=== PATIENT | female | born 1995 | race Caucasian/White ===

== ENCOUNTER 2018-10-07 18:17 | Observation (INO) ==
[2018-10-07] MEDS ORDERED: KETOROLAC 30 MG/ML VIAL IV STA (18:38)
[2018-10-07] MEDS ORDERED: ONDANSETRON INJ 2 MG/ML 2 ML VIAL IV STA (18:38)
[2018-10-07] MEDS ORDERED: SODIUM CHLORIDE 0.9% 1000ML 1,000 ML IV SCH (18:45)
[2018-10-07 19:01] LABS: Basophils # (auto) 0.02 K/uL (0-0.2); Basophils % (auto) 0.1 %; Hematocrit (blood only) 41.7 % (37-47); Hemoglobin 14.8 g/dL (12.0-16.0); Immature Granulocytes # (auto) 0.04 K/uL (0.00-0.02); Immature Granulocytes % (auto) 0.2 %; Lymphocytes # (auto) 0.81 K/uL (1.2-3.4); Lymphocytes % (auto) 4.1 %; Mean Corpuscular Hgb Conc 35.5 g/dL (32-36); Mean Platelet Volume 9.3 fL (7.4-10.4); Monocytes # (auto) 0.93 K/uL (0.11-0.59); Monocytes % (auto) 4.7 %; Neutrophils # (auto) 18.19 K/uL (1.4-6.5); Neutrophils % (auto) 90.9 %; Platelet Count 315 K/uL (130-400); RDW Coefficient of Variation 12.3 % (11.5-14.5); RDW Standard Deviation 40.3 fL (36.4-46.3); Red Blood Count 4.58 M/uL (4.2-5.4); White Blood Count 19.99 K/uL (4.8-10.8)
[2018-10-07 19:20] LABS: Albumin Level 4.2 gm/dl (3.4-5.0); BUN Creatinine Ratio 8.5 (10-20); Calcium 9.5 mg/dl (8.5-10.1); Est GFR (African American) 129.3; Est GFR (Non-African American) 111.6; Potassium 3.3 mmol/L (3.5-5.1)
[2018-10-07 19:22] LABS: Appearance Urine Turbid (Clear); Bacteria Urine Automated Negative (Negative); Bilirubin Urine Negative (Negative); Color Urine Yellow; Glucose Urine UA Negative (Negative); Leukocyte Esterase Urine Negative (Negative); Nitrite Urine Negative (Negative); Protein Urine Negative (Negative); Specific Gravity Urine 1.022 (1.000-1.030); Urobilinogen Urine Negative (Negative); pH Urine 7.5 (4.5-7.5)
[2018-10-07 19:23] LABS: Albumin Globulin Ratio 1.1 (0.9-2); Bilirubin,Total 0.7 mg/dl (0.2-1); Globulin 3.9 gm/dl (2.5-4.0); Total Protein 8.1 gm/dl (6.4-8.2)
[2018-10-07 19:28] LABS: Ketones Urine 3+ (Negative)
[2018-10-07] MEDS ORDERED: SODIUM CHLORIDE 0.9% 1000ML 1,000 ML IV ONE (19:30)
[2018-10-07 19:31] LABS: iSTAT Hemoglobin 13.6 g/dl (12.0-16.0); iSTAT Ionized Calcium 1.12 mmol/l (1.12-1.32)
[2018-10-07] MEDS ORDERED: IOVERSOL 100ml IV PRN (19:41)
[2018-10-07] MEDS ORDERED: MOXIFLOXACIN / 0.8% SALINE 400 MG/250 ML BAG IV STA (19:49)
--- NOTE | 2018-10-07 19:54 | CT Scan Report ---
CT OF THE ABDOMEN AND PELVIS WITH CONTRAST CLINICAL HISTORY: Right lower quadrant abdominal pain. COMPARISON STUDY: None. TECHNIQUE: Following IV administration of 93 mL of Optiray-320, axial images of the abdomen and pelvi s were obtained from the lung bases to the proximal femurs. Images were reviewed in the axial, sagitt al, and coronal planes. IV contrast was administered without complication. Automated exposure contro l was utilized for the study. A dose lowering technique was utilized adhering to the principles of A MARK. CT DOSE: 263.25 mGy.cm FINDINGS: Lung bases are clear. The liver, spleen, adrenal glands, kidneys and pancreas are normal. T here is no biliary or pancreatic ductal dilatation. There is no hydronephrosis. There is no evidence for a bowel obstruction. A small appendicolith is noted within the base of the appendix. The appendix is fluid-filled and mildly dilated, measuring 8 mm in caliber. There is no significant periappendice al infiltration. There is no free air or abscess. The appendix extends posteriorly along the medial a spect of the right iliac vessels. The ovaries are not enlarged. No suspicious skeletal lesion is note d. IMPRESSION: Acute appendicitis. No free air or abscess. Mildly dilated, fluid-filled appendix which contains an appendicolith. No significant periappendiceal infiltration. Findings discussed with Dr. Karen glass at time of dictation. Electronically signed by: Jamar Smith M.D. 10/07/2018 7:52 PM
[2018-10-07] MEDS ORDERED: CIPROFLOXACIN 400 MG/200 ML BAG IV STA (20:22)
[2018-10-07] MEDS ORDERED: metroNIDAZOLE 500 MG/100 ML BAG IV STA (20:22)
--- NOTE | 2018-10-07 20:33 | History & Physical Report ---
Date of Service October 07, 2018 Assessment & Plan (1) Appendicitis: This patient's history, physical findings, laboratories and CT findings are consistent with appendicitis. I have recommended a laparoscopic appendectomy. I explained the possible need to convert to an open procedure. I explained the possible complications associated with those procedures. The patient wishes to go ahead with surgery and has signed a consent form. Present on Admission?: Yes History of Present Illness Chief Complaint: Abdominal pain Primary Care Provider: Oliva Coronado This is a 23-year-old female who developed pain in the periumbilical area then radiating towards the left and the right side with no side predominating. It began at 11 PM last night. The pain was initially dull but then when she woke up this morning it became much more sharp. She has nausea and had a few episodes of vomiting 1 of which was self-induced hoping that it would make her feel better but it did not. She has not had fever or chills. She has never had pain like this before. The pain is exacerbated by motion. She has no change in her bowel habits. There is no melena or hematochezia. She has no dysuria or hematuria. Her menstrual cycles have been normal. Allergies Allergy/AdvReac Type Severity Reaction Status Date / Time No Known Allergies Allergy Unverified 10/07/18 18:41 Home Medications Home Medications Medication Instructions Recorded Confirmed Type Control 1 tab PO DAILY 10/07/18 10/07/18 History Past Med/Surg History Medical History No pertinent past medical history Family History Other No pertinent family history in first degree relatives Social History Feels Safe at Home: Yes Smoking Status: Never smoker Hx Alcohol Use: Yes (Occasional) Review of Systems All systems reviewed & are unremarkable except as noted in HPI & below Physical Exam 2 Vital Signs (Past 24 Hours): Last Vital Signs Temp 37.1 C 10/07/18 18:21 Pulse 105 H 10/07/18 19:57 Resp 18 10/07/18 19:57 BP 150/91 H 10/07/18 19:57 Pulse Ox 100 10/07/18 19:57 Constitutional: well developed and well nourished; no acute distress Neck: trachea midline, no thyromegaly Respiratory: normal respiratory effort, lungs clear to auscultation Cardiovascular: Rate/Rhythm: regular rate and regular rhythm Gastrointestinal (Abdomen): Inspection/Auscultation: normal bowel sounds; abdomen not distended Percussion/Palpation: + abdomen tender and abdomen soft Lymphatic: no cervical lymphadenopathy Results & Data Laboratory Results 10/07/18 10/07/18 10/07/18 Range/Units 19:17 18:50 18:50 WBC 19.99 H (4.8-10.8) K/uL RBC 4.58 (4.2-5.4) M/uL Hgb 14.8 (12.0-16.0) g/dL POC Hgb 13.6 (12.0-16.0) g/dl Hct 41.7 (37-47) % POC Hct 40 (37-47) % MCV 91.0 (80-100) fL MCH 32.3 (25-34) pg MCHC 35.5 (32-36) g/dL RDW Std Deviation 40.3 (36.4-46.3) fL RDW Coeff of Jonathan 12.3 (11.5-14.5) % Plt Count 315 (130-400) K/uL MPV 9.3 (7.4-10.4) fL Immature Gran % (Auto) 0.2 % Neut % (Auto) 90.9 % Lymph % (Auto) 4.1 % Cocke % (Auto) 4.7 % Eos % (Auto) 0.0 % Baso % (Auto) 0.1 % Immature Gran # (Auto) 0.04 H (0.00-0.02) K/uL Neut # (Auto) 18.19 H (1.4-6.5) K/uL Lymph # (Auto) 0.81 L (1.2-3.4) K/uL Cocke # (Auto) 0.93 H (0.11-0.59) K/uL Eos # (Auto) 0.00 (0-0.5) K/uL Baso # (Auto) 0.02 (0-0.2) K/uL POC Sodium 138 (135-144) mEq/L Sodium 138 (136-145) mmol/L POC Potassium 4.4 (3.3-5.0) mEq/L Potassium 3.3 L (3.5-5.1) mmol/L POC Chloride 102 (101-112) mEq/L Chloride 105 (98-107) mmol/L Carbon Dioxide 24 (21-32) mmol/L POC Total CO2 28 (24-31) mEq/l Anion Gap 9.0 (3-11) POC Anion Gap 14.0 L (16-25) mmol/L POC BUN 5 L (7-18) mg/dl BUN 6 L (7-18) mg/dl Creatinine 0.75 (0.6-1.2) mg/dl POC Creatinine 0.6 (0.6-1.3) mg/dl Est Cr Clr Drug Dosing 102.0 ml/min Est GFR ( Amer) 129.3 Est GFR (Non-Af Amer) 111.6 BUN/Creatinine Ratio 8.5 L (10-20) Glucose 118 H (70-99) mg/dl POC Glucose (other) 119 H (70-99) mg/dl Calcium 9.5 (8.5-10.1) mg/dl POC Ioniz Calcium Janny 1.12 (1.12-1.32) mmol/l Total Bilirubin 0.7 (0.2-1) mg/dl AST 11 L (15-37) U/L ALT 15 (12-78) U/L Alkaline Phosphatase 48 (45-117) U/L Total Protein 8.1 (6.4-8.2) gm/dl Albumin 4.2 (3.4-5.0) gm/dl Globulin 3.9 (2.5-4.0) gm/dl Albumin/Globulin Ratio 1.1 (0.9-2) Lipase 60 L (73-393) U/L Urine Color Urine Appearance (Clear) Urine pH (4.5-7.5) Ur Specific Anthony (1.000-1.030) Urine Protein (Negative) Urine Glucose (UA) (Negative) Urine Ketones (Negative) Urine Blood (Negative) Urine Nitrite (Negative) Urine Bilirubin (Negative) Urine Urobilinogen (Negative) Ur Leukocyte Esterase (Negative) Urine WBC (Auto) (0-5) /hpf Urine RBC (Auto) (0-4) /hpf U Hyaline Cast (Auto) (0-5) /lpf U Epithel Cells (Auto) (0-5) /lpf Urine Bacteria (Auto) (Negative) POC Ur Test (NEG) 10/07/18 10/07/18 Range/Units 18:30 18:30 WBC (4.8-10.8) K/uL RBC (4.2-5.4) M/uL Hgb (12.0-16.0) g/dL POC Hgb (12.0-16.0) g/dl Hct (37-47) % POC Hct (37-47) % MCV (80-100) fL MCH (25-34) pg MCHC (32-36) g/dL RDW Std Deviation (36.4-46.3) fL RDW Coeff of Jonathan (11.5-14.5) % Plt Count (130-400) K/uL MPV (7.4-10.4) fL Immature Gran % (Auto) % Neut % (Auto) % Lymph % (Auto) % Cocke % (Auto) % Eos % (Auto) % Baso % (Auto) % Immature Gran # (Auto) (0.00-0.02) K/uL Neut # (Auto) (1.4-6.5) K/uL Lymph # (Auto) (1.2-3.4) K/uL Cocke # (Auto) (0.11-0.59) K/uL Eos # (Auto) (0-0.5) K/uL Baso # (Auto) (0-0.2) K/uL POC Sodium (135-144) mEq/L Sodium (136-145) mmol/L POC Potassium (3.3-5.0) mEq/L Potassium (3.5-5.1) mmol/L POC Chloride (101-112) mEq/L Chloride (98-107) mmol/L Carbon Dioxide (21-32) mmol/L POC Total CO2 (24-31) mEq/l Anion Gap (3-11) POC Anion Gap (16-25) mmol/L POC BUN (7-18) mg/dl BUN (7-18) mg/dl Creatinine (0.6-1.2) mg/dl POC Creatinine (0.6-1.3) mg/dl Est Cr Clr Drug Dosing ml/min Est GFR ( Amer) Est GFR (Non-Af Amer) BUN/Creatinine Ratio (10-20) Glucose (70-99) mg/dl POC Glucose (other) (70-99) mg/dl Calcium (8.5-10.1) mg/dl POC Ioniz Calcium Janny (1.12-1.32) mmol/l Total Bilirubin (0.2-1) mg/dl AST (15-37) U/L ALT (12-78) U/L Alkaline Phosphatase (45-117) U/L Total Protein (6.4-8.2) gm/dl Albumin (3.4-5.0) gm/dl Globulin (2.5-4.0) gm/dl Albumin/Globulin Ratio (0.9-2) Lipase (73-393) U/L Urine Color Yellow Urine Appearance Turbid H (Clear) Urine pH 7.5 (4.5-7.5) Ur Specific Anthony 1.022 (1.000-1.030) Urine Protein Negative (Negative) Urine Glucose (UA) Negative (Negative) Urine Ketones 3+ H (Negative) Urine Blood Negative (Negative) Urine Nitrite Negative (Negative) Urine Bilirubin Negative (Negative) Urine Urobilinogen Negative (Negative) Ur Leukocyte Esterase Negative (Negative) Urine WBC (Auto) 1-5 (0-5) /hpf Urine RBC (Auto) 0-4 (0-4) /hpf U Hyaline Cast (Auto) 1-5 (0-5) /lpf U Epithel Cells (Auto) 10-20 H (0-5) /lpf Urine Bacteria (Auto) Negative (Negative) POC Ur Test NEG (NEG) Diagnostic Findings CT OF THE ABDOMEN AND PELVIS WITH CONTRAST CLINICAL HISTORY: Right lower quadrant abdominal pain. COMPARISON STUDY: None. TECHNIQUE: Following IV administration of 93 mL of Optiray-320, axial images of the abdomen and pelvis were obtained from the lung bases to the proximal femurs. Images were reviewed in the axial, sagittal, and coronal planes. IV contrast was administered without complication. Automated exposure control was utilized for the study. A dose lowering technique was utilized adhering to the principles of ALARA. CT DOSE: 263.25 mGy.cm FINDINGS: Lung bases are clear. The liver, spleen, adrenal glands, kidneys and pancreas are normal. There is no biliary or pancreatic ductal dilatation. There is no hydronephrosis. There is no evidence for a bowel obstruction. A small appendicolith is noted within the base of the appendix. The appendix is fluid- filled and mildly dilated, measuring 8 mm in caliber. There is no significant periappendiceal infiltration. There is no free air or abscess. The appendix extends posteriorly along the medial aspect of the right iliac vessels. The ovaries are not enlarged. No suspicious skeletal lesion is noted. IMPRESSION: Acute appendicitis. No free air or abscess. Mildly dilated, fluid- filled appendix which contains an appendicolith. No significant periappendiceal infiltration. Findings discussed with Dr. Agosto at time of dictation.
[2018-10-07] MEDS ORDERED: HEPARIN (PORCINE) 1000 UNIT/ML 10 ML (CATH LAB USE ONLY) ONE (20:39)
[2018-10-07] MEDS ORDERED: CEFAZOLIN 250 MG/ML 1 GM VIAL ONE (20:39)
[2018-10-07] MEDS ORDERED: BUPIVACAINE 0.5 % 5 MG/1 ML MPF 30ML VIAL ONE (20:40)
--- NOTE | 2018-10-07 20:59 | Anesthesiology Consultation ---
Date of Service October 07, 2018 Assessment & Plan (1) Encounter for pre-operative examination: Chart Review Chart Review: Acceptable Risk for Surgery and Patient NOT seen in Pre Admission Testing Consults Requested none ASA [id number] Proposed Anesthesia Anesthesia Type: General Risk / Benefits Reviewed With: PT / POA / Parent / Guardian, Accepts Plan and Informed Consent Obtained NPO Date Last Intake of Fluids: 10/07/18 Time Last Intake of Fluids: 17:30 Last Intake of Fluids Comment: per patient few sips of water at urgent care Date Last Intake of Solids: 10/07/18 Time Last Intake of Solids: 12:00 Last Intake of Solids Comment: per patient History Surgery Operation Date: 10/07/18 20:35 Proposed Procedures p Laparoscopic Appendectomy - Mani Díaz MD Height/Weight Height: 5 ft 4.5 in Weight: 62.6 kg Allergies Allergy/AdvReac Type Severity Reaction Status Date / Time No Known Allergies Allergy Unverified 10/07/18 18:41 Medications Home Medications Medication Instructions Recorded Confirmed Last Taken Control 1 tab PO DAILY 10/07/18 10/07/18 Unknown Active Medications Generic Name Dose Route Start Last Admin Trade Name Freq PRN Reason Stop Dose Admin Ioversol 93 ml 10/07/18 19:41 10/07/18 19:42 Optiray 320 100ml IV 10/11/18 19:40 93 ml ONCE PRN Administration Interaction Checking Past Medical History Medical History No pertinent past medical history Past Family History Family History Other No pertinent family history in first degree relatives Past Anesthesia History No Family Hx of Anesthesia Complications no prior personal history of anesthesia Motion Sickness Screening History of Motion Sickness: No Social History Smoking Status: Never smoker Do You Dip or Chew Tobacco: No Hx Alcohol Use: Yes (Occasional) Hx Substance Use: No Exercise / Class Metabolic Activity II 4-5 Yardwork/Stairs/Walk up hill Negative for chest pain or shortness of breath. Physical Exam Vital Signs Last Vital Signs Temp 37.1 C 10/07/18 18:21 Pulse 105 H 10/07/18 19:57 Resp 18 10/07/18 19:57 BP 150/91 H 10/07/18 19:57 Pulse Ox 100 10/07/18 19:57 Constitutional not obese ENMT Mouth: no TMJ abnormality and oral opening not small Thyromental Distance: < 3.5 Finger Breadths Mallampati Class: III Neck normal visual inspection; neck extension not limited Respiratory normal respiratory effort Auscultation: lungs clear to auscultation bilaterally Cardiovascular Rate/Rhythm: regular rate and regular rhythm Heart Sounds: no murmur Psychiatric A+Ox3, euthymic affect Orientation: alert and oriented x 3 Testing Laboratory Results 10/07/18 18:50 10/07/18 18:50 Urine Color Yellow 10/07/18 18:30 Urine Appearance Turbid (Clear) H 10/07/18 18:30 Urine pH 7.5 (4.5-7.5) 10/07/18 18:30 Ur Specific [place] 1.022 (1.000-1.030) 10/07/18 18:30 Urine Protein Negative (Negative) 10/07/18 18:30 Urine Glucose (UA) Negative (Negative) 10/07/18 18:30 Urine Ketones 3+ (Negative) H 10/07/18 18:30 Urine Nitrite Negative (Negative) 10/07/18 18:30 Ur Leukocyte Esterase Negative (Negative) 10/07/18 18:30 Urine WBC (Auto) 1-5 /hpf (0-5) 10/07/18 18:30 Urine RBC (Auto) 0-4 /hpf (0-4) 10/07/18 18:30 U Hyaline Cast (Auto) 1-5 /lpf (0-5) 10/07/18 18:30 U Epithel Cells (Auto) 10-20 /lpf (0-5) H 10/07/18 18:30 Urine Bacteria (Auto) Negative (Negative) 10/07/18 18:30 10/07/18 19:17 POC Glucose (other) 119 H 10/07/18 18:30 POC Ur Test NEG
[2018-10-07] MEDS ORDERED: SUCCINYLCHOLINE CHLORIDE 20 MG/ML 10 ML VIAL ONE (21:11)
[2018-10-07] MEDS ORDERED: DEXAMETHASONE SOD INJ 4 MG/ML VIAL ONE (21:11)
[2018-10-07] MEDS ORDERED: LIDOCAINE HCL 2% 2 ML VIAL/AMP(20MG/ML) INFIL ONE (21:11)
[2018-10-07] MEDS ORDERED: MIDAZOLAM HCL 1 MG/ML 2ML VIAL ONE (21:12)
[2018-10-07] MEDS ORDERED: ONDANSETRON INJ 2 MG/ML 2 ML VIAL ONE (21:12)
[2018-10-07] MEDS ORDERED: fentaNYL citrate 100 MCG/2 ML VIAL ONE ×2 (21:12→22:09)
[2018-10-07] MEDS ORDERED: ROCURONIUM BROMIDE 10 MG/ML 5 ML VIAL ONE (21:12)
[2018-10-07] MEDS ORDERED: PROPOFOL IV EMULSION 10 MG/ML 20 ML VIAL IV ONE ×2 (21:12→22:23)
[2018-10-07] MEDS ORDERED: ATROPINE SULFATE 0.1 MG/ML 10ML SYR IV PRN (22:19)
[2018-10-07] MEDS ORDERED: fentaNYL citrate 100 MCG/2 ML VIAL IV PRN (22:19)
[2018-10-07] MEDS ORDERED: ePHEDrine sulfate 50 MG/ML AMP IV PRN (22:19)
[2018-10-07] MEDS ORDERED: HYDROmorphone INJ 1 MG/ML SYRINGE IV PRN (22:19)
[2018-10-07] MEDS ORDERED: ONDANSETRON INJ 2 MG/ML 2 ML VIAL IV PRN ×2 (22:19→23:55)
[2018-10-07] MEDS ORDERED: DiphenhydrAMINE HCL 50 MG/ML VIAL ONE (22:23)
--- NOTE | 2018-10-07 22:28 | Emergency Department Note ---
Entered by Luis Garg acting as a scribe for Sravan Agosto MD History of Present Illness General Chief complaint: Abdominal Pain Stated complaint: CONSTANT PAIN IN AREA AROUND BELLY BUTTON,TENDER Time Seen by Provider: 10/07/18 18:25 Source: patient History of Present Illness Provider complaint: Abdominal pain Onset (ago): day(s) 1 Location: abdomen Radiation: non-radiation Pain Consistency: + constant Maximum Pain Intensity: 5 Relieved By: + other (Bending over) Exacerbated By: + none Associated symptoms: + nausea/vomiting and + other (No urinary symptoms, less frequent bowel movements) The patient is a 23 year old female w/ no PMHx who presents to the ED w/ CC of constant RLQ abdominal pain beginning last night around 2300. She was referred to the ED today by urgent care for further evaluation. She states she has one episode of vomiting, but believes it was induced by the Pepto-Bismol that she took. She originally took this medication thinking that her pain was gas related. She does note that bending over makes the pain better and nothing seems to make it worse. She does not have any urinary symptoms but has been moving her bowels less frequently. She denies any recent trauma or surgeries and is only on control daily. She admits to occasionally using alcohol but no tobacco or drugs. Her LNMP was 2 weeks ago. Home Medications Home Medications Medication Instructions Recorded Confirmed Type Control 1 tab PO DAILY 10/07/18 10/07/18 History Allergies Allergy/AdvReac Type Severity Reaction Status Date / Time No Known Allergies Allergy Unverified 10/07/18 18:41 Past Med/Surg History Medical History No pertinent past medical history Family History Other No pertinent family history in first degree relatives Social History Feels Safe at Home: Yes Smoking Status: Never smoker Do You Dip or Chew Tobacco: No Hx Alcohol Use: Yes (Occasional) Hx Substance Use: No Review of Systems See HPI for pertinent positives & negatives. and A total of 10 systems reviewed and were otherwise negative Physical Exam Vital Signs Vital Signs - 24 hr 10/07/18 18:21 10/07/18 18:27 10/07/18 19:00 Temperature 37.1 C Temperature Source Oral Sepsis Recent Fever Within 48 Hours No Sepsis Action Taken by Nursing No Action Required Pulse Rate 99 H Pulse Rate [Finger] Respiratory Rate 18 16 Respiratory Effort / Characteristics Non-Labored Respiratory Depth Normal Blood Pressure 140/94 Blood Pressure [Left Arm] Blood Pressure Mean 109 Blood Pressure Mean [Left Arm] Blood Pressure Position Sitting Pulse Oximetry 98 98 98 Oxygen Delivery Method Room Air Room Air Room Air 10/07/18 19:57 10/07/18 21:01 Temperature Temperature Source Sepsis Recent Fever Within 48 Hours Sepsis Action Taken by Nursing Pulse Rate 122 H Pulse Rate [Finger] 105 H Respiratory Rate 18 18 Respiratory Effort / Characteristics Respiratory Depth Blood Pressure 119/84 Blood Pressure [Left Arm] 150/91 H Blood Pressure Mean Blood Pressure Mean [Left Arm] 110 Blood Pressure Position Pulse Oximetry 100 100 Oxygen Delivery Method Room Air Room Air GENERAL: Well appearing, well nourished, NAD, non-toxic. EYE EXAM: Normal conjunctiva. PERRL, no anisocoria and EOM's grossly intact w/o pains. OROPHARYNX: No exudate, posterior pharynx is clear, no tonsillar/uvular deviation or swelling. NECK: Supple, no nuchal rigidity, no adenopathy, non-tender. No signs of meningismus. LUNGS: Clear to auscultation bilaterally. Normal chest wall mechanics. HEART: Tachycardic and regular, no MRG. ABDOMEN: Abdomen soft, RLQ suprapubic pain, normo-active bowel sounds, no masses , no rebound or guarding. Negative obturator and psoas BACK: No CVA TTP. SKIN: No rashes and no bruising. UPPER EXTREMITIES: Upper extremities are grossly normal. LOWER EXTREMITIES: No pitting edema. No calf pain. NEURO EXAM: Cranial nerves II-XII grossly intact, normal speech, 5/5 strength in bilateral upper and lower extremities, no sensory deficits, moves all 4 extremities on command w/o issue. Course 1829: Past medical records reviewed. The patient was evaluated in room C09, and a complete history and physical examination were performed. 1950: I reevaluated the patient and updated her on results. She understand the situation and agrees with the plan. 1954: I spoke to Dr. Díaz - General Surgery and he is going to come evaluate the patient and accept her for further treatment. Consultations Consultation #1: I spoke to Dr. Díaz - General Surgery and he is going to come evaluate the patient and accept her for further treatment. Time: 19:55 Administered Medications Ioversol (Optiray 320 100ml) 93 ml IV ONCE PRN PRN Reason: Interaction Checking Stop: 10/11/18 19:40 Last Admin: 10/07/18 19:42 Dose: 93 ml Discontinued Medications Sodium Chloride (Nss 1000ml) 1,000 mls @ 999 mls/hr IV .Q1H1M ANCA Stop: 10/07/18 19:45 Last Infusion: 10/07/18 20:12 Dose: 0 mls/hr Admin: 10/07/18 19:10 Dose: 999 mls/hr Sodium Chloride (Nss 1000ml) 1,000 mls @ 999 mls/hr IV .Q1H1M ONE Stop: 10/07/18 20:30 Last Admin: 10/07/18 19:54 Dose: 999 mls/hr Ciprofloxacin (Cipro) 400 mg in 200 mls @ 200 mls/hr IV NOW STA Stop: 10/07/18 21:21 Last Admin: 10/07/18 20:37 Dose: 200 mls/hr Metronidazole (Flagyl) 500 mg in 100 mls @ 100 mls/hr IV NOW STA Stop: 10/07/18 21:21 Last Admin: 10/07/18 20:37 Dose: 100 mls/hr Ketorolac Tromethamine (Toradol) 30 mg IV NOW STA Stop: 10/07/18 18:39 Last Admin: 10/07/18 19:10 Dose: 30 mg Ondansetron HCl (Zofran) 4 mg IV NOW STA Stop: 10/07/18 18:39 Last Admin: 10/07/18 19:10 Dose: 4 mg Medical Decision Making Medical Records Attestation: I reviewed the patient's medical records. Home Medications Current Medication List: was personally reviewed by me Laboratory Data Attestation: I reviewed the patient's lab results. Result diagrams: 10/07/18 18:50 10/07/18 18:50 Lab Results 10/07/18 10/07/18 10/07/18 Range/Units 18:30 18:30 18:50 WBC 19.99 H (4.8-10.8) K/uL RBC 4.58 (4.2-5.4) M/uL Hgb 14.8 (12.0-16.0) g/dL POC Hgb (12.0-16.0) g/dl Hct 41.7 (37-47) % POC Hct (37-47) % MCV 91.0 (80-100) fL MCH 32.3 (25-34) pg MCHC 35.5 (32-36) g/dL RDW Std Deviation 40.3 (36.4-46.3) fL RDW Coeff of Jonathan 12.3 (11.5-14.5) % Plt Count 315 (130-400) K/uL MPV 9.3 (7.4-10.4) fL Immature Gran % (Auto) 0.2 % Neut % (Auto) 90.9 % Lymph % (Auto) 4.1 % [place] % (Auto) 4.7 % Eos % (Auto) 0.0 % Baso % (Auto) 0.1 % Immature Gran # (Auto) 0.04 H (0.00-0.02) K/uL Neut # (Auto) 18.19 H (1.4-6.5) K/uL Lymph # (Auto) 0.81 L (1.2-3.4) K/uL [place] # (Auto) 0.93 H (0.11-0.59) K/uL Eos # (Auto) 0.00 (0-0.5) K/uL Baso # (Auto) 0.02 (0-0.2) K/uL POC Sodium (135-144) mEq/L Sodium (136-145) mmol/L POC Potassium (3.3-5.0) mEq/L Potassium (3.5-5.1) mmol/L POC Chloride (101-112) mEq/L Chloride (98-107) mmol/L Carbon Dioxide (21-32) mmol/L POC Total CO2 (24-31) mEq/l Anion Gap (3-11) POC Anion Gap (16-25) mmol/L POC BUN (7-18) mg/dl BUN (7-18) mg/dl Creatinine (0.6-1.2) mg/dl POC Creatinine (0.6-1.3) mg/dl Est Cr Clr Drug Dosing ml/min Est GFR ( Amer) Est GFR (Non-Af Amer) BUN/Creatinine Ratio (10-20) Glucose (70-99) mg/dl POC Glucose (other) (70-99) mg/dl Calcium (8.5-10.1) mg/dl POC Ioniz Calcium Janny (1.12-1.32) mmol/l Total Bilirubin (0.2-1) mg/dl AST (15-37) U/L ALT (12-78) U/L Alkaline Phosphatase (45-117) U/L Total Protein (6.4-8.2) gm/dl Albumin (3.4-5.0) gm/dl Globulin (2.5-4.0) gm/dl Albumin/Globulin Ratio (0.9-2) Lipase (73-393) U/L Urine Color Yellow Urine Appearance Turbid H (Clear) Urine pH 7.5 (4.5-7.5) Ur Specific [place] 1.022 (1.000-1.030) Urine Protein Negative (Negative) Urine Glucose (UA) Negative (Negative) Urine Ketones 3+ H (Negative) Urine Blood Negative (Negative) Urine Nitrite Negative (Negative) Urine Bilirubin Negative (Negative) Urine Urobilinogen Negative (Negative) Ur Leukocyte Esterase Negative (Negative) Urine WBC (Auto) 1-5 (0-5) /hpf Urine RBC (Auto) 0-4 (0-4) /hpf U Hyaline Cast (Auto) 1-5 (0-5) /lpf U Epithel Cells (Auto) 10-20 H (0-5) /lpf Urine Bacteria (Auto) Negative (Negative) POC Ur Test NEG (NEG) 10/07/18 10/07/18 Range/Units 18:50 19:17 WBC (4.8-10.8) K/uL RBC (4.2-5.4) M/uL Hgb (12.0-16.0) g/dL POC Hgb 13.6 (12.0-16.0) g/dl Hct (37-47) % POC Hct 40 (37-47) % MCV (80-100) fL MCH (25-34) pg MCHC (32-36) g/dL RDW Std Deviation (36.4-46.3) fL RDW Coeff of Jonathan (11.5-14.5) % Plt Count (130-400) K/uL MPV (7.4-10.4) fL Immature Gran % (Auto) % Neut % (Auto) % Lymph % (Auto) % [place] % (Auto) % Eos % (Auto) % Baso % (Auto) % Immature Gran # (Auto) (0.00-0.02) K/uL Neut # (Auto) (1.4-6.5) K/uL Lymph # (Auto) (1.2-3.4) K/uL [place] # (Auto) (0.11-0.59) K/uL Eos # (Auto) (0-0.5) K/uL Baso # (Auto) (0-0.2) K/uL POC Sodium 138 (135-144) mEq/L Sodium 138 (136-145) mmol/L POC Potassium 4.4 (3.3-5.0) mEq/L Potassium 3.3 L (3.5-5.1) mmol/L POC Chloride 102 (101-112) mEq/L Chloride 105 (98-107) mmol/L Carbon Dioxide 24 (21-32) mmol/L POC Total CO2 28 (24-31) mEq/l Anion Gap 9.0 (3-11) POC Anion Gap 14.0 L (16-25) mmol/L POC BUN 5 L (7-18) mg/dl BUN 6 L (7-18) mg/dl Creatinine 0.75 (0.6-1.2) mg/dl POC Creatinine 0.6 (0.6-1.3) mg/dl Est Cr Clr Drug Dosing 102.0 ml/min Est GFR ( Amer) 129.3 Est GFR (Non-Af Amer) 111.6 BUN/Creatinine Ratio 8.5 L (10-20) Glucose 118 H (70-99) mg/dl POC Glucose (other) 119 H (70-99) mg/dl Calcium 9.5 (8.5-10.1) mg/dl POC Ioniz Calcium Janny 1.12 (1.12-1.32) mmol/l Total Bilirubin 0.7 (0.2-1) mg/dl AST 11 L (15-37) U/L ALT 15 (12-78) U/L Alkaline Phosphatase 48 (45-117) U/L Total Protein 8.1 (6.4-8.2) gm/dl Albumin 4.2 (3.4-5.0) gm/dl Globulin 3.9 (2.5-4.0) gm/dl Albumin/Globulin Ratio 1.1 (0.9-2) Lipase 60 L (73-393) U/L Urine Color Urine Appearance (Clear) Urine pH (4.5-7.5) Ur Specific [place] (1.000-1.030) Urine Protein (Negative) Urine Glucose (UA) (Negative) Urine Ketones (Negative) Urine Blood (Negative) Urine Nitrite (Negative) Urine Bilirubin (Negative) Urine Urobilinogen (Negative) Ur Leukocyte Esterase (Negative) Urine WBC (Auto) (0-5) /hpf Urine RBC (Auto) (0-4) /hpf U Hyaline Cast (Auto) (0-5) /lpf U Epithel Cells (Auto) (0-5) /lpf Urine Bacteria (Auto) (Negative) POC Ur Test (NEG) Imaging Data Radiologist's Impression: Radiology results as stated below per my review and the radiologist's interpretation: CT OF THE ABDOMEN AND PELVIS WITH CONTRAST CLINICAL HISTORY: Right lower quadrant abdominal pain. COMPARISON STUDY: None. TECHNIQUE: Following IV administration of 93 mL of Optiray-320, axial images of the abdomen and pelvis were obtained from the lung bases to the proximal femurs. Images were reviewed in the axial, sagittal, and coronal planes. IV contrast was administered without complication. Automated exposure control was utilized for the study. A dose lowering technique was utilized adhering to the principles of ALARA. CT DOSE: 263.25 mGy.cm FINDINGS: Lung bases are clear. The liver, spleen, adrenal glands, kidneys and pancreas are normal. There is no biliary or pancreatic ductal dilatation. There is no hydronephrosis. There is no evidence for a bowel obstruction. A small appendicolith is noted within the base of the appendix. The appendix is fluid- filled and mildly dilated, measuring 8 mm in caliber. There is no significant periappendiceal infiltration. There is no free air or abscess. The appendix extends posteriorly along the medial aspect of the right iliac vessels. The ovaries are not enlarged. No suspicious skeletal lesion is noted. IMPRESSION: Acute appendicitis. No free air or abscess. Mildly dilated, fluid- filled appendix which contains an appendicolith. No significant periappendiceal infiltration. Findings discussed with Dr. Agosto at time of dictation. Electronically signed by: Jamar Smith M.D. 10/07/2018 7:52 PM Blood Pressure Blood Pressure Findings: Normal blood pressure MDM Narrative The patient is a 23 year old female w/ no PMHx who presents to the ED w/ CC of constant RLQ abdominal pain beginning last night around 2300. Differential diagnoses includes but is not limited to gastritis, peptic ulcer disease, GERD, gallbladder disease, pancreatitis, small bowel obstruction, acute coronary syndrome, pericarditis, ischemic bowel, irritable bowel disease, irritable bowel syndrome, appendicitis, diverticulitis, malignancy, hernia, urinary tract infection, torsion, /ectopic , perforation, trauma, infectious. Patient was seen and evaluated the bedside. The patient was referred as the patient was having some right-sided abdominal pain and associated nausea with one episode of vomiting. The patient does have right lower quadrant suprapubic discomfort. The patient does have a negative obturators and psoas. Patient is a blood work completed which showed a white count of 19,000. Patient's LFTs and lipase unremarkable. The patient CT the abdomen pelvis did show an uncomplicated appendicitis. The patient was made n.p.o. started on D5 half- normal with KCl given mildly low potassium. The patient was also started on antibiotics with Cipro and Flagyl. I did speak with the on-call general surgeon who agreed to further evaluate treat the patient. Patient was taken to the OR and admitted to the surgical service pending appendectomy. Impression & Plan Acute appendicitis, Sepsis Discharge Plan Visit Data *Final* Discharge Date/Time: 10/07/18 21:01 Chief Complaint: Abdominal Pain Stated Complaint: CONSTANT PAIN IN AREA AROUND BELLY BUTTON,TENDER ED Provider: Sravan Agosto Discharge Problem: Acute appendicitis, Sepsis Patient Disposition: Still a Patient Discharge Instructions Interventions: ED Discharge Assessment Last Done: 10/07/18 21:01 The scribe's documentation has been prepared under my direction and personally reviewed by me in its entirety. I confirm that the note above accurately reflects all work, treatment, procedures, and medical decision making performed by me.
[2018-10-07] MEDS ORDERED: GLYCOPYRROLATE 0.2 MG/ML VIAL ONE ×2 (22:34→22:38)
[2018-10-07] MEDS ORDERED: NEOSTIGMINE METHYLSULFATE 5 MG/5 ML SYR ONE (22:34)
--- NOTE | 2018-10-07 22:56 | Post Operative Brief Note ---
Immediate Post Op Note v1 Date of Surgery October 07, 2018 Pre & Post Diagnosis Operation Date: 10/07/18 20:35 Pre-Op Diagnosis: appendicitis. Post-Op Diagnosis: appendicitis. Procedure Operation Date: 10/07/18 20:35 Actual Procedures p Laparoscopic Appendectomy(Not Applicable) - Mani Díaz MD Surgeon Mani Díaz MD Screw Machine Set Up Operator None Estimated Blood Loss 20 Findings Consistent with Post-Op Diagnosis Specimens Appendix Drains Garces Catheter Complications none
[2018-10-07] MEDS ORDERED: MoRPHine SULFATE 4 MG/ML 1 ML CARP\\VIAL IV PRN (23:55)
[2018-10-08] MEDS: D5W AND 1/2NSS + 20MEQ KCL 20 MEQ/1,000 ML BAG IV SCH ×2 (00:32→09:33)
[2018-10-08] MEDS ORDERED: DiphenhydrAMINE HCL 50 MG/ML VIAL IV PRN (01:04)
[2018-10-08] MEDS: OXYCODONE/ACETAMINOPHEN 5mg/325mg TAB PO PRN ×4 (01:38→15:25)
--- NOTE | 2018-10-08 01:55 | Operative Report ---
DATE OF OPERATION: 10/07/2018 PREOPERATIVE DIAGNOSIS: Appendicitis. POSTOPERATIVE DIAGNOSIS: Same. PROCEDURE: Laparoscopic appendectomy. SURGEON: Mani Díaz MD FINDINGS: The appendix was short. The proximal 2 cm at the base were normal but beyond that it was dilated, hyperemic, and firm. There was no evidence of perforation or abscess. The uterus and ovaries appeared normal. The visible bowel appeared normal. TECHNIQUE: The patient was given a general anesthetic and the area was prepped and draped in the usual sterile fashion. Transverse incision was made below the umbilicus, carried down through the subcutaneous tissue to the fascia which was grasped with 2 Gordon clamps and incised between. The peritoneum was identified, incised, and the introducer was placed bluntly. The abdomen was then insufflated to a pressure of 15 mmHg with carbon dioxide. A lower midline introducer was placed under direct vision through a small skin incision. Traction was placed superiorly on the cecum and the appendix was identified. The left lower quadrant introducer was placed under direct vision through a small skin incision. I was able to elevate the appendix. It was not adherent. The mesoappendix was away from the base of the appendix. There was some bleeding from the appendiceal artery; however, when I divided the mesoappendix using the Endo-JASPER stapler, that bleeding was controlled. That confirmed that I was at the base of the appendix and I was able to see its junction with the normal cecum. The appendix was then amputated using the Endo-JASPER stapler. The appendix was placed into an Endobag and brought out through the left lower quadrant introducer site. The introducer was replaced and the right lower quadrant was irrigated. The pelvis was irrigated. There were some clots in the pelvis that were completely removed. Irrigation was performed until the return was clear. The 2 staple lines were inspected and there was no bleeding. The right lower quadrant and pelvis were again irrigated and the irrigation removed. The right upper quadrant was inspected and there was no irrigation that had entered that quadrant. The gas was allowed to escape and the introducers were removed. The fascia of the umbilical and left lower quadrant introducer sites was closed with interrupted 0 Vicryl and skin of all the incisions was closed with 4-0 Monocryl in either a running or interrupted subcuticular fashion. The skin was anesthetized with 0.5% Marcaine. The skin was cleansed, dried, benzoin placed, Steri-Strips applied. The estimated blood loss was 20 mL. Sponge, needle and instrument counts were correct prior to closure. The patient tolerated the surgical procedure without complication and was transferred to recovery. I attest to the content of the Intraoperative Record and any orders documented therein. Any exception s are noted below.
--- NOTE | 2018-10-08 02:49 | Anesthesiology Progress Note ---
Date of Service October 08, 2018 Anesthesia Post Procedure Vital Signs Vital Signs: Temp Pulse Pulse Resp BP BP BP 10/08/18 01:55 37.5 C 82 16 138/84 10/08/18 00:55 37.4 C 90 16 124/76 10/08/18 00:25 37.2 C 86 16 126/81 10/07/18 23:55 37.2 C 77 16 123/80 10/07/18 23:40 37.0 C 84 17 115/70 10/07/18 23:30 83 16 120/83 10/07/18 23:20 95 H 16 135/83 10/07/18 23:10 36.8 C 99 H 17 128/80 10/07/18 21:01 122 H 18 119/84 10/07/18 19:57 105 H 18 150/91 H 10/07/18 19:00 10/07/18 18:27 16 10/07/18 18:21 37.1 C 99 H 18 140/94 Pulse Ox 10/08/18 01:55 99 10/08/18 00:55 100 10/08/18 00:25 96 10/07/18 23:55 100 10/07/18 23:40 100 10/07/18 23:30 99 10/07/18 23:20 99 10/07/18 23:10 100 10/07/18 21:01 100 10/07/18 19:57 100 10/07/18 19:00 98 10/07/18 18:27 98 10/07/18 18:21 98 Pain Intensity Abdomen: Pain Intensity: 3 Notes Mental Status: alert / awake / arousable and participated in evaluation Patient Amnestic to Procedure: Yes Nausea / Vomiting: adequately controlled Pain: adequately controlled Airway Patency, RR, SpO2: stable & adequate BP & HR: stable & adequate Hydration State: stable & adequate Anesthetic Complications: no major complications apparent and Pt Satisfied with anesthetic care
--- NOTE | 2018-10-08 10:04 | Anesthesiology Progress Note ---
Date of Service October 08, 2018 Anesthesia Post Procedure Vital Signs Vital Signs: Temp Pulse Pulse Resp BP BP BP 10/08/18 07:40 36.6 C 61 16 98/62 L 10/08/18 02:55 37.4 C 78 16 104/67 10/08/18 01:55 37.5 C 82 16 138/84 10/08/18 00:55 37.4 C 90 16 124/76 10/08/18 00:25 37.2 C 86 16 126/81 10/07/18 23:55 37.2 C 77 16 123/80 10/07/18 23:40 37.0 C 84 17 115/70 10/07/18 23:30 83 16 120/83 10/07/18 23:20 95 H 16 135/83 10/07/18 23:10 36.8 C 99 H 17 128/80 10/07/18 21:01 122 H 18 119/84 10/07/18 19:57 105 H 18 150/91 H 10/07/18 19:00 10/07/18 18:27 16 10/07/18 18:21 37.1 C 99 H 18 140/94 Pulse Ox 10/08/18 07:40 98 10/08/18 02:55 98 10/08/18 01:55 99 10/08/18 00:55 100 10/08/18 00:25 96 10/07/18 23:55 100 10/07/18 23:40 100 10/07/18 23:30 99 10/07/18 23:20 99 10/07/18 23:10 100 10/07/18 21:01 100 10/07/18 19:57 100 10/07/18 19:00 98 10/07/18 18:27 98 10/07/18 18:21 98 Pain Intensity Abdomen: Pain Intensity: 3 Notes Mental Status: alert / awake / arousable Patient Amnestic to Procedure: Yes Nausea / Vomiting: adequately controlled Pain: adequately controlled Airway Patency, RR, SpO2: stable & adequate BP & HR: stable & adequate Hydration State: stable & adequate Anesthetic Complications: no major complications apparent and Pt Satisfied with anesthetic care
--- NOTE | 2018-10-08 15:37 | Surgery Progress Note ---
Date of Service October 08, 2018 Assessment & Plan (1) Appendicitis: POD # 1 s/p laparoscopic appendectomy -vitals stable, afebrile - post op pain controlled - no n/v Plan: Discharge home today discharge instructions reviewed Rx for Percocet prn pain f/u surgical office in [address] Díaz has seen and examined pt, agrees with above Subjective Feeling good Some shoulder pain, better when walking around abdominal pain controlled no nausea or vomiting tolerating diet Physical Exam 2 Vital Signs (Past 24 Hours): Last Vital Signs Temp 37.0 C 10/08/18 15:24 Pulse 78 10/08/18 15:24 Resp 18 10/08/18 15:24 BP 124/78 10/08/18 15:24 Pulse Ox 100 10/08/18 15:24 Constitutional: WD/WN, vitals as above no acute distress Respiratory: no respiratory distress Gastrointestinal (Abdomen): Inspection/Auscultation: abdomen normal to inspection; abdomen not distended Percussion/Palpation: + abdomen tender (at incision sites, appropriate post op) and abdomen soft; no guarding and abdomen not rigid Skin: no rashes, warm and dry + incision (Covered with dressings, clean/dry /intact) Psychiatric: A+Ox3, euthymic affect Results & Data Laboratory Results 10/07/18 10/07/18 10/07/18 Range/Units 19:17 18:50 18:50 WBC 19.99 H (4.8-10.8) K/uL RBC 4.58 (4.2-5.4) M/uL Hgb 14.8 (12.0-16.0) g/dL POC Hgb 13.6 (12.0-16.0) g/dl Hct 41.7 (37-47) % POC Hct 40 (37-47) % MCV 91.0 (80-100) fL MCH 32.3 (25-34) pg MCHC 35.5 (32-36) g/dL RDW Std Deviation 40.3 (36.4-46.3) fL RDW Coeff of Jonathan 12.3 (11.5-14.5) % Plt Count 315 (130-400) K/uL MPV 9.3 (7.4-10.4) fL Immature Gran % (Auto) 0.2 % Neut % (Auto) 90.9 % Lymph % (Auto) 4.1 % Loving % (Auto) 4.7 % Eos % (Auto) 0.0 % Baso % (Auto) 0.1 % Immature Gran # (Auto) 0.04 H (0.00-0.02) K/uL Neut # (Auto) 18.19 H (1.4-6.5) K/uL Lymph # (Auto) 0.81 L (1.2-3.4) K/uL Loving # (Auto) 0.93 H (0.11-0.59) K/uL Eos # (Auto) 0.00 (0-0.5) K/uL Baso # (Auto) 0.02 (0-0.2) K/uL POC Sodium 138 (135-144) mEq/L Sodium 138 (136-145) mmol/L POC Potassium 4.4 (3.3-5.0) mEq/L Potassium 3.3 L (3.5-5.1) mmol/L POC Chloride 102 (101-112) mEq/L Chloride 105 (98-107) mmol/L Carbon Dioxide 24 (21-32) mmol/L POC Total CO2 28 (24-31) mEq/l Anion Gap 9.0 (3-11) POC Anion Gap 14.0 L (16-25) mmol/L POC BUN 5 L (7-18) mg/dl BUN 6 L (7-18) mg/dl Creatinine 0.75 (0.6-1.2) mg/dl POC Creatinine 0.6 (0.6-1.3) mg/dl Est Cr Clr Drug Dosing 102.0 ml/min Est GFR ( Amer) 129.3 Est GFR (Non-Af Amer) 111.6 BUN/Creatinine Ratio 8.5 L (10-20) Glucose 118 H (70-99) mg/dl POC Glucose (other) 119 H (70-99) mg/dl Calcium 9.5 (8.5-10.1) mg/dl POC Ioniz Calcium Janny 1.12 (1.12-1.32) mmol/l Total Bilirubin 0.7 (0.2-1) mg/dl AST 11 L (15-37) U/L ALT 15 (12-78) U/L Alkaline Phosphatase 48 (45-117) U/L Total Protein 8.1 (6.4-8.2) gm/dl Albumin 4.2 (3.4-5.0) gm/dl Globulin 3.9 (2.5-4.0) gm/dl Albumin/Globulin Ratio 1.1 (0.9-2) Lipase 60 L (73-393) U/L Urine Color Urine Appearance (Clear) Urine pH (4.5-7.5) Ur Specific Leslie (1.000-1.030) Urine Protein (Negative) Urine Glucose (UA) (Negative) Urine Ketones (Negative) Urine Blood (Negative) Urine Nitrite (Negative) Urine Bilirubin (Negative) Urine Urobilinogen (Negative) Ur Leukocyte Esterase (Negative) Urine WBC (Auto) (0-5) /hpf Urine RBC (Auto) (0-4) /hpf U Hyaline Cast (Auto) (0-5) /lpf U Epithel Cells (Auto) (0-5) /lpf Urine Bacteria (Auto) (Negative) POC Ur Test (NEG) 10/07/18 10/07/18 Range/Units 18:30 18:30 WBC (4.8-10.8) K/uL RBC (4.2-5.4) M/uL Hgb (12.0-16.0) g/dL POC Hgb (12.0-16.0) g/dl Hct (37-47) % POC Hct (37-47) % MCV (80-100) fL MCH (25-34) pg MCHC (32-36) g/dL RDW Std Deviation (36.4-46.3) fL RDW Coeff of Jonathan (11.5-14.5) % Plt Count (130-400) K/uL MPV (7.4-10.4) fL Immature Gran % (Auto) % Neut % (Auto) % Lymph % (Auto) % Loving % (Auto) % Eos % (Auto) % Baso % (Auto) % Immature Gran # (Auto) (0.00-0.02) K/uL Neut # (Auto) (1.4-6.5) K/uL Lymph # (Auto) (1.2-3.4) K/uL Loving # (Auto) (0.11-0.59) K/uL Eos # (Auto) (0-0.5) K/uL Baso # (Auto) (0-0.2) K/uL POC Sodium (135-144) mEq/L Sodium (136-145) mmol/L POC Potassium (3.3-5.0) mEq/L Potassium (3.5-5.1) mmol/L POC Chloride (101-112) mEq/L Chloride (98-107) mmol/L Carbon Dioxide (21-32) mmol/L POC Total CO2 (24-31) mEq/l Anion Gap (3-11) POC Anion Gap (16-25) mmol/L POC BUN (7-18) mg/dl BUN (7-18) mg/dl Creatinine (0.6-1.2) mg/dl POC Creatinine (0.6-1.3) mg/dl Est Cr Clr Drug Dosing ml/min Est GFR ( Amer) Est GFR (Non-Af Amer) BUN/Creatinine Ratio (10-20) Glucose (70-99) mg/dl POC Glucose (other) (70-99) mg/dl Calcium (8.5-10.1) mg/dl POC Ioniz Calcium Janny (1.12-1.32) mmol/l Total Bilirubin (0.2-1) mg/dl AST (15-37) U/L ALT (12-78) U/L Alkaline Phosphatase (45-117) U/L Total Protein (6.4-8.2) gm/dl Albumin (3.4-5.0) gm/dl Globulin (2.5-4.0) gm/dl Albumin/Globulin Ratio (0.9-2) Lipase (73-393) U/L Urine Color Yellow Urine Appearance Turbid H (Clear) Urine pH 7.5 (4.5-7.5) Ur Specific Leslie 1.022 (1.000-1.030) Urine Protein Negative (Negative) Urine Glucose (UA) Negative (Negative) Urine Ketones 3+ H (Negative) Urine Blood Negative (Negative) Urine Nitrite Negative (Negative) Urine Bilirubin Negative (Negative) Urine Urobilinogen Negative (Negative) Ur Leukocyte Esterase Negative (Negative) Urine WBC (Auto) 1-5 (0-5) /hpf Urine RBC (Auto) 0-4 (0-4) /hpf U Hyaline Cast (Auto) 1-5 (0-5) /lpf U Epithel Cells (Auto) 10-20 H (0-5) /lpf Urine Bacteria (Auto) Negative (Negative) POC Ur Test NEG (NEG)
--- NOTE | 2018-10-11 16:00 | Discharge Summary ---
Date of Service October 11, 2018 Admission HPI Per Admitting Provider This is a 23-year-old female who developed pain in the periumbilical area then radiating towards the left and the right side with no side predominating. It began at 11 PM last night. The pain was initially dull but then when she woke up this morning it became much more sharp. She has nausea and had a few episodes of vomiting 1 of which was self-induced hoping that it would make her feel better but it did not. She has not had fever or chills. She has never had pain like this before. The pain is exacerbated by motion. She has no change in her bowel habits. There is no melena or hematochezia. She has no dysuria or hematuria. Her menstrual cycles have been normal. Principal Diagnosis Acute Appendicitis Discharge Exam Constitutional WD/WN, vitals as above no acute distress Respiratory no respiratory distress Gastrointestinal (Abdomen) Inspection/Auscultation: abdomen normal to inspection; abdomen not distended Percussion/Palpation: + abdomen tender (at incision sites, appropriate post op) and abdomen soft; no guarding and abdomen not rigid Skin no rashes, warm and dry + incision (Covered with dressings, clean/dry/intact) Psychiatric A+Ox3, euthymic affect Discharge Data Allergies Allergy/AdvReac Type Severity Reaction Status Date / Time ciprofloxacin Allergy Intermediate Hives Verified 10/08/18 11:08 metronidazole Allergy Intermediate Hives Verified 10/08/18 08:28 Consultations 10/07/18 19:54 ED Decision to Admit Stat Procedures Performed Operation Date: 10/07/18 20:35 Actual Procedures p Laparoscopic Appendectomy(Not Applicable) - Mani Díaz MD Ordered Studies 10/07/18 18:38 CT abd pelvis IV con only Stat Hospital Course (1) Appendicitis: Patient was taken to operating room for laparoscopic appendectomy by Dr. Díaz. Patient found to have acute appendicitis without perforation or abscess. Patient tolerated procedure well and was transferred to recovery and then to medical/surgical floor for post operative care. Started on IV fluids, PO Percocet with breakthrough IV morphine as needed for pain, IV Zofran prn nausea, activity as tolerated, regular diet, SCDs and incentive spirometry. Patient evaluated on POD # 1, vitals stable, afebrile, post op pain controlled, n/v, tolerating diet, ambulating without difficulty. Patient was discharged home on POD # 1 in stable condition. Total Time Total Time Spent Total Time Spent (In Minutes): 20 Total Time Includes: Examination of the Patient, Discharge Planning and Medication Reconciliation Discharge Plan Discharge Items Patient Disposition: Home - Self-Care Reason For Visit: LAP APPY Discharge Diagnosis: Acute appendicitis Discharge Goals: Decrease discomfort and Improve function Activity: Per 'Additional Instructions' section Non-emergency contact: Primary Care Provider and Surgeon Call non-emergency contact if: your symptoms worsen, your pain is not controlled , your pain is worsening, your pain is concerning for you, you have a fever, your temperature is above 101, your wound has increased redness and your wound has increased drainage Follow-up/Referrals: Oliva Coronado [Primary Care Provider] - Diet: Regular Addtl Provider Instructions: Post-Surgical ~ Discharge Instructions Activity Recommendations: - lifting limitation: (10 pounds for 2 weeks), - exercise/sex/sports limit: (nonstrenuous for 2 weeks), - driving or machine use limit: (none for 1 week), - Shower/bathe limit: (may shower beginning tomorrow) Diet: - Resume previous diet SPECIAL CARE INSTRUCTIONS: - May shower in 24 hours. Let water run over area and pat dry. - Leave steri strips on for one week and then remove - Call the surgeon's office with any questions or concerns - - (ex. temperature higher than 101 degrees F, excessive bleeding or pain). MEDICATIONS: - Resume previous medications unless instructed otherwise by your surgeon. - Ibuprofen 600 mg every 6 hours with food - Percocet 1 every 4 hours, as needed for pain FOLLOW UP VISIT: - If not already scheduled, please call the office to schedule a two week follow-up appointment. Office number Prescriptions: New oxycodone-acetaminophen [Percocet] 5-325 mg Tablet 1 tab PO Q4H PRN (Reason: pain) Qty: 18 RF: 0 Continue Control 1 tab PO DAILY RF: 0 Stand-Alone Forms: My imeem, [facility], Work/ School Release (Inpt) Discharge Orders: Discharge Order (Routine); Ordered 10/08/18 Ordered By: Katherine Beck Admission Data Admit Date/Time: 10/07/18 22:56 Attending Provider: Mani Díaz Admit Provider: Mani Díaz Primary Care Provider: Oliva Coronado Other Providers: Mani Díaz Service: Surgical Services Other Interventions: Discharge Summary Assessment (RN) Last Done: 10/08/18 16:12 Pending Studies at Discharge: Yes (Appendix pathology, will be reviewed at follow-up visit) DC Date/Time DO NOT enter until pt leaves facility: 10/08/18 16:27
== END 2018-10-08 16:27 | disposition home or self-care (01) ==
LOC: ED 18:17 → OR 21:01 → INTOOBSV 22:56 → 3W 22:56